=== PATIENT | female | born 1965 | race Two or more races ===

== ENCOUNTER 2020-01-31 19:06 | Emergency (ER) | payer OTHER ==
[~2020-01-31] VITALS: Ht 149.9 cm; Wt 55.0 kg
--- NOTE | 2020-01-31 19:31 | PHYS DOC ---
Past History Past Medical History: Sciatica General Adult HPI: HPI: ".. I was bending over.. and felt a pop in my back,... I am getting evaluated.. for my back pain... I usually see Dr Alvarez..." Patient is a 54 year old FEMALE who presents with acute exacerbation of her sciatica left lumbar that radiates down her left leg.. Patient has had an MRI evaluation of her back did show some lumbar sacral stenosis. No history of fever or chills problem no problems with defecation or urination. Patient denies any history of kidney stones. No recent travel. No specific ill contacts. Patient states her pain is 800 out of 10. Review of Systems: Review of Systems: Constitutional: Denies fever or chills Eyes: Denies change in visual acuity HENT: Denies nasal congestion or sore throat Respiratory: Denies cough or shortness of breath Cardiovascular: Denies chest pain or edema GI: Denies abdominal pain, nausea, vomiting, bloody stools or diarrhea : Denies dysuria Musculoskeletal: Complains of lumbar and left sciatic back pain Integument: Denies rash Neurologic: Denies headache, focal weakness or sensory changes Endocrine: Denies polyuria or polydipsia Lymphatic: Denies swollen glands Psychiatric: Denies depression or anxiety Heart Score: Risk Factors: Risk Factors: DM, Current or recent (<one month) smoker, HTN, HLP, family history of CAD, obesity. Risk Scores: Score 0 - 3: 2.5% MACE over next 6 weeks - Discharge Home Score 4 - 6: 20.3% MACE over next 6 weeks - Admit for Clinical Observation Score 7 - 10: 72.7% MACE over next 6 weeks - Early Invasive Strategies Family History: Family History: Noncontributory to presentation Current Medications: Current Meds: See nursing for home meds Allergies: Allergies: No known drug allergies Physical Exam: PE: Constitutional: in acute distress, non-toxic appearance. [] HENT: Normocephalic, atraumatic, bilateral external ears normal, oropharynx moist, no oral exudates, nose normal. [] Eyes: PERRLA, EOMI, conjunctiva normal, no discharge. [] Neck: Normal range of motion, no tenderness, supple, no stridor. [] Cardiovascular:Heart rate regular rhythm, no murmur [] Lungs & Thorax: Bilateral breath sounds clear to auscultation [] Abdomen: Bowel sounds decreased , soft, no tenderness, no masses, no pulsatile masses. [] Skin: Warm, dry, no erythema, no rash. [] Back: Lumbar sacral tenderness, no CVA tenderness. Pain follows sciatic root on left. Extremities: No tenderness, no cyanosis, no clubbing, ROM intact, no edema. [] Straight leg lift on left exacerbates patient's pain Neurologic: Alert and oriented X 3, normal motor function, normal sensory function, no focal deficits noted. [] Psychologic: Affect very anxious , judgement normal, mood normal. [] EKG: EKG: [] Radiology/Procedures: Radiology/Procedures: [][address] [address] IMAGING REPORT Signed PATIENT: ALLAN MENESES AACCOUNT: [id number] : 1965 LOCATION: ER AGE: 54 SEX: F EXAM STATUS: PRE ER ORD. PHYSICIAN: ARUN GRIGGS MD REASON: OMNI 300, 75ML IV.BACK PAIN, POSSIBLE INFECTION HX BULGING DISC PROCEDURE: CT LUMBAR SPINE W/CONTRAST Exam: CT the lumbar spine with contrast INDICATION: Possible infection history of injury, back pain TECHNIQUE: Sequential axial images through the lumbar spine obtained following the administration of 70 mL of Omni 300 IV contrast. Sagittal and coronal reformatted images were reconstructed from the axial data and reviewed. Comparisons: None FINDINGS: Vertebral body heights and alignment are well-maintained. Fracture through the lumbar spine is not identified. Moderate bilateral facet arthropathy at L4-L5 and L5-S1. No significant neural foraminal or spinal canal stenosis. Visualized paraspinal soft tissues are unremarkable. IMPRESSION: Mild spondylotic change in the lumbar spine as described above. No paraspinal abscess or erosive changes in the bones. If more definitive evaluation for osteomyelitis is desired MRI would better evaluate. Exposure: One or more of the following in the visualized dose reduction techniques were utilized for this examination: 1. Automated exposure control 2. Adjustment of the MA and/or KV according to patient size 3. Use of iterative of reconstructive technique Electronically signed by: Rachael Whitt MD (01/31/2020 9:49 PM) [facility] DICTATED AND SIGNED BY: RACHAEL WHITT MD DATE: 01/31/202148 CC: ARUN GRIGGS MD; CORY GONZALEZ ~ Course & Med Decision Making: Course & Med Decision Making Pertinent Labs and Imaging studies reviewed. (See chart for details) Pt. take meds as previously directed. May add Flexeril 10 mg up to 3 times a day. May add Vicoprofen up to 4 times a day. Patient to follow-up primary care and have them review ED work-up. There is possibility that this may be renal colic however exam was not consistent with renal colic. Pt. pain marked improvement at time of discharge. [] Impression: 1. Lumbar sacral pain sciatica 2. Mild elevation Glucose 110 3. Elevation Creat. 1.4 Dragon Disclaimer: Dragon Disclaimer: This electronic medical record was generated, in whole or in part, using a voice recognition dictation system. Departure Departure: Disposition: 01 NE HOME SELF CARE/HOMELESS Condition: STABLE Referrals: CORY GONZALEZ (PCP) Scripts Magnesium Hydroxide (MILK OF MAGNESIA) 2,400 Mg/10 Ml Oral.susp 2400 MG PO daily at HS for narcotic use for 30 Days, LIQUID Prov: ARUN GRIGGS MD 01/31/20 Hydrocodone/Ibuprofen (HYDROCODONE-IBUPROFEN 7.5-200 ) 1 Each Tablet 1 TAB PO PRN Q6HRS PRN for PAIN, #30 TAB 0 Refills Prov: ARUN GRIGGS MD 01/31/20 Cyclobenzaprine Hcl (CYCLOBENZAPRINE HCL) 10 Mg Tablet 10 MG PO tidprn for spasms, #30 TAB Prov: ARUN GRIGGS MD 01/31/20 ARUN GRIGGS MD Jan 31, 2020 19:31
[2020-01-31] MEDS ORDERED: IV RINGERS SOLUTION,LACTATED 1,000 ML IV SCH (19:53)
[2020-01-31 20:39] LABS: BASO # 0.1 x10^3/uL (0.0-0.2); BASO % 1 % (0-3); EOS # 0.2 x10^3/uL (0.0-0.7); EOS % 3 % (0-3); HEMATOCRIT 40.9 % (36.0-47.0); HEMOGLOBIN 13.4 g/dL (12.0-15.5); LYMPH # 1.6 x10^3/uL (1.0-4.8); LYMPH % 24 % (24-48); MEAN CORPUSCULAR HEMOGLOBIN 26 pg (25-35); MEAN CORPUSCULAR HGB CONC 33 g/dL (31-37); MEAN CORPUSCULAR VOLUME 79 fL (79-100); MONO # 0.5 x10^3/uL (0.0-1.1); MONO % 8 % (0-9); NEUT # 4.3 x10^3uL (1.8-7.7); NEUT % 65 % (31-73); PLATELET COUNT 194 x10^3/uL (140-400); RED BLOOD COUNT 5.15 x10^6/uL (3.50-5.40); RED CELL DISTRIBUTION WIDTH 15.3 % (11.5-14.5); WHITE BLOOD COUNT 6.6 x10^3/uL (4.0-11.0)
[2020-01-31 20:48] LABS: BILIRUBIN,URINE NEG (NEG); CALCIUM 9.3 mg/dL (8.5-10.1); CLARITY,URINE CLEAR; COLOR,URINE AMBER; CREATININE 1.4 mg/dL (0.6-1.0); GFR 38.9; GLUCOSE,URINE NEG (NEG); POTASSIUM 3.6 mmol/L (3.5-5.1)
[2020-01-31 20:49] LABS: BACTERIA,URINE 0 /HPF (0-FEW); NITRITE,URINE NEG (NEG); SQUAMOUS EPITHELIAL CELL,UR FEW /LPF; UROBILINOGEN,URINE 0.2 mg/dL (0.2 mg/dL)
[2020-01-31 20:54] LABS: ALBUMIN 3.9 g/dL (3.4-5.0); DIRECT BILIRUBIN 0.1 mg/dL (0.0-0.2); TOTAL BILIRUBIN 0.4 mg/dL (0.2-1.0); TOTAL PROTEIN 7.5 g/dL (6.4-8.2)
[2020-01-31] MEDS ORDERED: IOHEXOL 300 MG/ML 75 ML VIAL. IV ONE (21:00)
[2020-01-31] MEDS ORDERED: CONTRAST GIVEN. MC PRN (21:00)
[2020-01-31] MEDS ORDERED: ORPHENADRINE CITRATE 60 MG/2 ML VIAL. IV ONE (21:15)
[2020-01-31] MEDS ORDERED: KETOROLAC 30 MG/ML VIAL. IVP ONE (21:15)
[2020-01-31] MEDS ORDERED: MORPHINE SULFATE 10 MG/ML SYRINGE. SQ ONE (21:15)
--- NOTE | 2020-01-31 21:52 | RAD ---
Exam: CT the lumbar spine with contrast INDICATION: Possible infection history of injury, back pain TECHNIQUE: Sequential axial images through the lumbar spine obtained following the administration of 70 mL of Omni 300 IV contrast. Sagittal and coronal reformatted images were reconstructed from the axial data and reviewed. Comparisons: None FINDINGS: Vertebral body heights and alignment are well-maintained. Fracture through the lumbar spine is not identified. Moderate bilateral facet arthropathy at L4-L5 and L5-S1. No significant neural foraminal or spinal canal stenosis. Visualized paraspinal soft tissues are unremarkable. IMPRESSION: Mild spondylotic change in the lumbar spine as described above. No paraspinal abscess or erosive changes in the bones. If more definitive evaluation for osteomyelitis is desired MRI would better evaluate. Exposure: One or more of the following in the visualized dose reduction techniques were utilized for this examination: 1. Automated exposure control 2. Adjustment of the MA and/or KV according to patient size 3. Use of iterative of reconstructive technique Electronically signed by: Rachael Valdez MD (01/31/2020 9:49 PM) BARBIE
[2020-01-31] MEDS ORDERED: HYDR-1179 PO (22:33)
[2020-01-31] MEDS ORDERED: MAGN24003 PO (22:33)
[2020-01-31] MEDS ORDERED: CYCL-331 PO (22:33)
[2020-01-31 22:40] VITALS: BP 104/56
== END 2020-01-31 23:35 | disposition home or self-care (01) ==
LOC: ER 19:06
DX: M54.42 Lumbago with sciatica, left side (principal); R73.02 Impaired glucose tolerance (oral); R79.89 Other specified abnormal findings of blood chemistry
CPT/HCPCS: 36415; 72132; 80048; 80076; 81001; 85025; 87086; 96361; 96372; 96374; 96375; 99285; J1885; J2270; J2360; J7120; Q9967

== ENCOUNTER → 2020-02-19 | Outpatient (CLI) | payer OTHER ==
[2020-01-31 22:40] VITALS: BP 104/56
[~2020-02-19] MED LIST: CYCL-331 PO; HYDR-1179 PO; MAGN24003 PO
--- NOTE | 2020-02-19 12:33 | RAD ---
EXAM: Renal sonogram. HISTORY: Renal cyst. TECHNIQUE: Sonographic imaging of the kidneys and bladder was performed. COMPARISON: None. FINDINGS: The kidneys are normal in size. There is mild right hydronephrosis. There is a 2.3 cm right renal cyst with thin internal septation. There is an 8 mm simple appearing left renal cyst. No solid renal lesion is seen. The prevoid bladder volume is 58 cc. The inferior cava is patent. IMPRESSION: 1. Mild right hydronephrosis. 2. 2.8 cm right renal cyst with internal septation. Sonographic follow-up can be performed in 6 months to confirm stability. There is also a small simple simple appearing cyst within the left kidney. Electronically signed by: Krysta Navarrete MD (02/19/2020 12:30 PM) [id number]
== END ==
LOC: US 09:52
PROVIDERS: ATTEND Family Medicine
DX: N28.1 Cyst of kidney, acquired (principal); N13.30 Unspecified hydronephrosis
CPT/HCPCS: 76770

== ENCOUNTER 2021-06-30 13:42 | Emergency (ER) | payer BC, OTHER ==
[~2021-06-30] VITALS: Ht 152.4 cm; Wt 52.2 kg
[~2021-06-30 13:42] MED LIST changes: -CYCL-331 PO; +CYCL10TA19 PO
--- NOTE | 2021-06-30 14:06 | EKG ---
[address] [address] Test Date: 2021-06-30 Test Time: 13:52:10 Pat Name: ALLAN MENESES Department: Room: Gender: F [employer] Paraprofessional: CARINE : 1965 Requested By: LUTHER FRAUSTO Order Number: [id number] Reading MD: David Clemons Measurements Intervals [place] Rate: 82 P: 51 ND: 148 QRS: 9 QRSD: 80 T: 31 QT: 360 QTc: 424 Interpretive Statements SINUS RHYTHM NORMAL ECG RI6.01 No previous ECG available for comparison Electronically Signed On 07-02-2021 8:36:20 AGRONOMY ADVISOR by David Clemons
[2021-06-30 14:19] LABS: BASO # 0.1 x10^3/uL (0.0-0.2); BASO % 1 % (0-3); EOS # 0.2 x10^3/uL (0.0-0.7); EOS % 3 % (0-3); HEMATOCRIT 39.7 % (36.0-47.0); HEMOGLOBIN 12.8 g/dL (12.0-15.5); LYMPH # 1.4 x10^3/uL (1.0-4.8); LYMPH % 26 % (24-48); MEAN CORPUSCULAR HEMOGLOBIN 26 pg (25-35); MEAN CORPUSCULAR HGB CONC 32 g/dL (31-37); MEAN CORPUSCULAR VOLUME 79 fL (79-100); MONO # 0.4 x10^3/uL (0.0-1.1); MONO % 7 % (0-9); NEUT # 3.5 x10^3uL (1.8-7.7); NEUT % 63 % (31-73); PLATELET COUNT 200 x10^3/uL (140-400); WHITE BLOOD COUNT 5.6 x10^3/uL (4.0-11.0)
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
[2021-06-30 14:32] LABS: CREATININE 1.1 mg/dL (0.6-1.0); GFR 51.2; POTASSIUM 3.6 mmol/L (3.5-5.1)
[2021-06-30 14:38] LABS: ALBUMIN 3.8 g/dL (3.4-5.0); ALBUMIN/GLOBULIN RATIO 1.1 (1.0-1.7); TOTAL BILIRUBIN 0.4 mg/dL (0.2-1.0); TOTAL PROTEIN 7.4 g/dL (6.4-8.2)
--- NOTE | 2021-06-30 14:45 | RAD ---
XR CHEST 1V Clinical Indication: Reason: cp / Spl. Instructions: / History: Comparison: None. Findings: The cardiomediastinal silhouette is normal. Lungs are clear. There is no pneumothorax. No pleural eff usion is appreciated. No acute bone abnormality. IMPRESSION: No acute cardiopulmonary process. Electronically signed by: Julio Marie MD (06/30/2021 2:42 PM) [id number]
[2021-06-30 15:00] VITALS: BP 137/84
== END 2021-06-30 15:13 | disposition home or self-care (01) ==
LOC: ER 13:42
DX: R07.2 Precordial pain (principal); F41.9 Anxiety disorder, unspecified; F32.9 Major depressive disorder, single episode, unspecified; G43.909 Migraine, unspecified, not intractable, without status migrainosus
CPT/HCPCS: 36415; 71045; 80053; 84484; 85025; 93005; 96374; 99285; J3010